=== PATIENT | female | born 1980 | race Caucasian/White ===

== ENCOUNTER → 2018-07-13 | Outpatient (CLI) | payer MEDICAID ==
--- NOTE | 2018-07-13 16:34 | RADIOLOGY REPORT (SQ) ---
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 PROCEDURE: PRE-PROCEDURE: Procedure was explained to the patient. She was told to expect cramping du ring the procedure, and possible spotting post procedure. PROCEDURE: Under direct visual inspection, the cervix was cannulated with the hysterosalpingogram cat heter and contrast injected. TECHNIQUE: Temporal fluoroscopic images acquired during the procedure stored to PACS. FLUOROSCOPY TIME: Less than 5 seconds 29 digital fluoroscopic images saved to PACS. LIMITATIONS: None. FINDINGS: UTERUS: Bicornuate uterus with single cervix. No synechiae. RIGHT ADNEXA: Normal size fallopian tube. There was preferential filling of the left fallopian tube and preferential spill from the left fallopian tube. We were unable to maintain enough pressure to a dequately reflux contrast alpha distal right fallopian tube. LEFT ADNEXA: Normal size fallopian tube. Free spill of contrast into the peritoneal cavity. POST PROCEDURE: The patient tolerated the procedure with no adverse effects. IMPRESSION: Bicornuate uterus with single cervix. Widely patent left fallopian tube with preferential spillage of contrast on the left side. On the right side, the majority of the fallopian tube opacifies with contrast. We were unable to ref lux contrast into the distal right fallopian tube due to preferential flow out the left side. COMMENT: Quality ID [id number]: Final reports for procedures using fluoroscopy that document radiation exp osure indices, or exposure time and number of fluorographic images (if radiation exposure indices are not available) TECHNICAL DOCUMENTATION: JOB ID: [id number] [employer]- All Rights Reserved Reading location - IP/workstation name: [email or web address]
== END ==
LOC: RAD 13:51
PROVIDERS: ATTEND Obstetrics & Gynecology Gynecology
DX: Q51.828 Other congenital malformations of cervix (principal); N97.9 Female infertility, unspecified; Q51.3 Bicornate uterus
CPT/HCPCS: 58340; 74740